=== PATIENT | male | born 1980 | race Caucasian/White ===

== ENCOUNTER 2016-08-12 12:01 | Emergency (ER) | payer MEDICAID ==
[~2016-08-12] VITALS: Ht 177.8 cm; Wt 109.0 kg
[2016-08-12 12:04] VITALS: BP 140/86
[2016-08-12] MEDS ORDERED: FLUORESCEIN SODIUM 1MG/STRIP OP ONE (15:30)
== END 2016-08-12 17:40 | disposition home or self-care (01) ==
LOC: ER 13:21
DX: T15.92XA Foreign body on external eye, part unspecified, left eye, initial encounter (principal); H57.12 Ocular pain, left eye; J45.909 Unspecified asthma, uncomplicated; F17.200 Nicotine dependence, unspecified, uncomplicated; W45.8XXA Other foreign body or object entering through skin, initial encounter; Y93.89 Activity, other specified; Y92.89 Other specified places as the place of occurrence of the external cause; Y99.8 Other external cause status
CPT/HCPCS: 65222; 70486; 99284